=== PATIENT | male | born 1955 | race African-American/Black ===

== ENCOUNTER 2016-06-23 23:05 | Emergency (ER) | payer SELFPAY ==
[~2016-06-23 23:05] MED LIST: PRIN10 PO; SYN.15 PO
== END 2016-06-23 23:40 | disposition home or self-care (01) ==
LOC: ER 23:05
DX: M25.561 Pain in right knee (principal); M79.651 Pain in right thigh; I10 Essential (primary) hypertension; E11.9 Type 2 diabetes mellitus without complications; Z79.899 Other long term (current) drug therapy
CPT/HCPCS: 73552-RT; 73560-RT; 82962; 99283